=== PATIENT | female | born 1955 | race African-American/Black ===

== ENCOUNTER 2018-05-04 12:39 | Observation (INO) | payer SELFPAY ==
--- OUTSIDE RECORDS SUMMARY | 2018-05-04 12:42 | XMS REPORT | Summary of Care ---
:1955 Author Encounter CLARICE Khan(SHELLIE) [id number] Date(s): 04/01/14 - 04/01/[address] Discharge Diagnosis: Neck pain on left side Discharge Diagnosis: Tinea pedis Discharge Disposition: Home Physician Attending: Lon Peralta MD Reason for Visit RIGHT FOOT PAIN Vital Signs Most recent to oldest [Reference Range]: 1 2 Height 160.02 cm (04/01/14 12:53 PM) Temperature Oral [96.4-99.1 DegF] 98.3 DegF 98.7 DegF (04/01/14 3:04 PM) (04/01/14 12:53 PM) Systolic Blood Pressure [90-140 mmHg] 127 mmHg 126 mmHg (04/01/14 3:04 PM) (04/01/14 12:53 PM) Diastolic Blood Pressure [60-90 mmHg] 77 mmHg 69 mmHg (04/01/14 3:04 PM) (04/01/14 12:53 PM) Respiratory Rate [14-20 BRMIN] 18 BRMIN 16 BRMIN (04/01/14 3:04 PM) (04/01/14 12:53 PM) Peripheral Pulse Rate [60-100 bpm] 56 bpm 67 bpm *LOW* (04/01/14 12:53 PM) (04/01/14 3:04 PM) Weight 68.182 kg (04/01/14 12:53 PM) Body Mass Index 26.63 m2 (04/01/14 12:53 PM) Problem List Condition Effective Dates Status Health Status Informant Anxiety(Confirmed) Resolved Allergies, Adverse Reactions, Alerts Substance Reaction Severity Status NKDA Active Medications Flexeril 10 mg oral tablet 10 mg=1 tab, PO, TID, for spasm, # 20 tab, 0 Refill(s) Start Date: 04/01/14 Status: OrderedLotrimin AF Cream 1% topical 1 appl, TOP, BID, # 24 gm, 1 Refill(s) Start Date: 04/01/14 Stop Date: 05/27/14 Status: Orderednaproxen 500 mg oral tablet 500 mg=1 tab, PO, BID, Pain, with food, # 20 tab, 0 Refill(s) Special Instructions: with food Start Date: 04/01/14 Status: OrderedNorco 5/325 oral tablet 1 tab, Route: PO, Drug Form: TAB, Dosing Weight 68.182, kg, ONCE, STAT, Start date: 04/01/14 13:39:00, Stop date: 04/01/14 13:39:00 Notes: (Same as: [place] 325/5) Do not exceed 4gm/day of acetaminophen. Start Date: 04/01/14 Stop Date: 04/01/14 Status: Completed Medications Administered During Your Visit No data available for this section Immunizations No data available for this section
--- OUTSIDE RECORDS SUMMARY | 2018-05-04 12:42 | XMS REPORT | Continuity of Care Document ---
:1955 Author Organization Interface Problems Problem Status Onset Classification Date Comments Source Date Reported Discharge 06/06/2017 [facility] Diagnosis: 7 Medical Headache Center BRYAN/DIZZINESS Active [facility] 7 Medical Center Discharge 04/04/2014 [facility] Diagnosis: 4 Medical Neck pain on Center left side Discharge 04/04/2014 [facility] Diagnosis: 4 Medical Tinea pedis Center RIGHT FOOT Active [facility] PAIN 4 Medical Center Anxiety Resolved Problem 06/06/2017 [facility] Medications Medication Details Route Status Patient Ordering Order Source Instructions Provider Date Ketorolac 15 mg, 0.5 mL, Inactive [facility] Route: IVP, Drug 2016 Medical form: INJ, ONCE, Center Dosing Weight 82.727, kg, Priority: STAT, Start date: 06/03/17 1:00:00 PAY STATION DEPARTMENT MANAGER, Stop date: 06/03/17 1:00:00 CSTNotes: (Same as:Toradol) IV bolus must be given >15 seconds. Give IM administration slowly and deeply into the muscle. Not for use > 4 days MEDICATION WASTE Product Size: 30 mg Product Wasted: ___ mg Tylenol 1,000 mg, 2 tab, Inactive 06/[facility] Route: PO, Drug 2016 Medical form: TAB, ONCE, Center Dosing Weight 82.727, kg, Priority: STAT, Start date: 06/03/17 0:24:00 PAY STATION DEPARTMENT MANAGER, Stop date: 06/03/17 0:24:00 CSTNotes: Max acetaminophen 4000 mg/day (4 gm/day). (Same as: Tylenol Extra Strength) Benadryl 50 mg, 1 mL, Inactive [facility] Route: IVP, Drug 2016 Medical form: INJ, ONCE, Center Dosing Weight 82.727, kg, Priority: STAT, Start date: 06/03/17 0:24:00 PAY STATION DEPARTMENT MANAGER, Stop date: 06/03/17 0:24:00 CSTNotes: (Same as: Benadryl) NS (Bolus) IV 1,000 mL, 1,000 Inactive [facility] ml/hr, Infuse 2016 Medical Over: 1 hr, Center Route: IV, 1,000, Drug form: INJ, ONCE, Priority: STAT, Dosing Weight 82.727 kg, Start date: 06/03/17 0:24:00 PAY STATION DEPARTMENT MANAGER, Stop date: 06/03/17 0:24:00 PAY STATION DEPARTMENT MANAGER Reglan 10 mg, 2 mL, Inactive [facility] Route: IVP, Drug 2016 Medical form: INJ, ONCE, Center Dosing Weight 82.727, kg, Priority: STAT, Start date: 06/03/17 0:24:00 PAY STATION DEPARTMENT MANAGER, Stop date: 06/03/17 0:24:00 CSTNotes: (Same as: Reglan) Cyclobenzaprine 10 mg=1 tab, PO, Active [facility] hydrochloride 10 TID, for spasm, 2013 Medical MG Oral Tablet # 20 tab, 0 Center [Flexeril] Refill(s) naproxen 500 mg 500 mg=1 tab, Active [facility] oral tablet PO, BID, Pain, 2013 Medical with food, # 20 Center tab, 0 Refill(s)Special Instructions: with food Clotrimazole 10 1 appl, TOP, Active [facility] MG/ML Topical BID, # 24 gm, 1 2013 Medical Cream [Lotrimin] Refill(s) Center Acetaminophen 325 1 tab, Route: Inactive [facility] MG / Hydrocodone PO, Drug Form: 2013 Medical Bitartrate 5 MG TAB, Dosing Center Oral Tablet Weight 68.182, [[place] 5/325] kg, ONCE, STAT, Start date: 04/01/14 13:39:00, Stop date: 04/01/14 13:39:00Notes: (Same as: [place] 325/5) Do not exceed 4gm/day of acetaminophen. Allergies, Adverse Reactions, Alerts Substance Category Reaction Severity Reaction Status Date Comments Source type Reported Immunizations Immunization Date Given Site Status Last Updated Comments Source Results Order Name Results Value Reference Date Interpretation Comments Source Range ELECTROLYTES AGAP 9.2 10.0 - 06/03 [facility] meq/L 20.0 /2016 [facility] ELECTROLYTES Calcium Lvl 8.3 8.5 - 10.5 06/03 [place] mg/dL [facility] ELECTROLYTES eGFR 64 06/03 Result Comment: The eGFR is calculated using the CKD-EPI formula. In most young, healthy individuals the eGFR will be > 90 mL/min/1.73m2. The eGFR declines with age. An eGFR of 60-89 may be normal in [facility] mL/min/ /2016 some populations, particularly the elderly, for whom the CKD-EPI formula has not been extensively validated. Use of the eGFR is not recommended in the following populations: [facility] 1.73m2 Center Individuals with unstable creatinine concentrations, including patients and those with serious co-morbid conditions. Patients with extremes in muscle mass or diet. The data above are obtained from the National Kidney Disease Education Program (NKDEP) which additionally recommends that when the eGFR is used in patients with extremes of body mass index for purposes of drug dosing, the eGFR should be multiplied by the estimated BMI. ELECTROLYTES CO2 30 24 - 32 06/03 [facility] meq/L [facility] ELECTROLYTES Chloride Lvl 106 95 - 109 06/03 [facility] meq/L [facility] ELECTROLYTES Glucose Lvl 101 70 - 99 06/03 [facility] mg/dL [facility] ELECTROLYTES Potassium Lvl 4.2 3.5 - 5.1 06/03 [facility] meq/L [address] [place] [address] ELECTROLYTES Sodium Lvl 141 135 - 145 06/03 [facility] meq/L [address] [place] [address] ELECTROLYTES Creatinine 1.09 0.50 - 06/03 [place] Lvl mg/dL 1.40 [facility] ELECTROLYTES BUN 19 7 - 22 06/03 [facility] mg/dL [facility] HEMATOLOGY MCV 90.6 fL 80.0 - 06/03 [place] 98.0 [facility] HEMATOLOGY WBC 5.1 3.7 - 10.4 06/03 [facility] K/CMM [facility] HEMATOLOGY Hct 36.4 % 36.0 - 06/03 [place] 48.0 [facility] HEMATOLOGY Hgb 12.1 12.0 - 06/03 [place] g/dL 16.0 [facility] HEMATOLOGY RBC 4.02 4.20 - 06/03 [facility] M/CMM 5.40 /2016 [facility] HEMATOLOGY Platelet 234 133 - 450 06/03 [facility] K/CMM [facility] HEMATOLOGY RDW 14.1 % 11.5 - 06/03 [facility] 14.5 [facility] HEMATOLOGY MCHC 33.2 32.0 - 06/03 [facility] g/dL 36.0 [facility] HEMATOLOGY MCH 30.1 pg 27.0 - 06/03 [facility] 31.0 [facility] HEMATOLOGY MPV 8.0 fL 7.4 - 10.4 06/[address] HEMATOLOGY Lymphocytes # 2.2 1.0 - 5.5 06/03 [facility] HEMATOLOGY Monocytes # 0.5 0.0 - 0.8 06/03 [facility] HEMATOLOGY Eosinophils # 0.3 0.0 - 0.5 06/03 [facility] HEMATOLOGY Lymphocytes 43.1 % 20.0 - 06/03 [facility] 40.0 [facility] HEMATOLOGY Segs 42.5 % 45.0 - 06/03 [facility] 75.0 [facility] HEMATOLOGY Monocytes 8.8 % 2.0 - 12.0 06/03 [facility] HEMATOLOGY Basophils 0.6 % 0.0 - 1.0 06/03 [facility] HEMATOLOGY Eosinophils 5.0 % 0.0 - 4.0 06/[address] [place] [address] HEMATOLOGY Segs-Bands # 2.2 1.5 - 8.1 06/03 [facility] Vital Signs Vital Sign Value Date Comments Source Temperature Oral (F) 98.3 F 06/03/2017 [facility] Respitory Rate 18 06/03/2017 [facility] Heart Rate 72 06/03/2017 [facility] Systolic (mm Hg) 147 06/03/2017 [facility] Diastolic (mm Hg) 63 06/03/2017 [facility] Respitory Rate 18 06/03/2017 [facility] Heart Rate 70 06/03/2017 [facility] Systolic (mm Hg) 133 06/03/2017 [facility] Diastolic (mm Hg) 68 06/03/2017 [facility] Respitory Rate 18 06/03/2017 [facility] Heart Rate 71 06/03/2017 [facility] Systolic (mm Hg) 138 06/03/2017 [facility] Diastolic (mm Hg) 78 06/03/2017 [facility] Temperature Oral (F) 98.4 F 06/03/2017 [facility] Temperature Oral (F) 98.7 F 06/03/2017 [facility] BMI Calculated 33.36 06/02/2017 [facility] Weight 82.727 06/02/2017 [facility] Height 157.48 cm 06/02/2017 [facility] Systolic (mm Hg) 127 04/01/2014 [facility] Heart Rate 56 04/01/2014 [facility] Temperature Oral (F) 98.3 F 04/01/2014 [facility] Diastolic (mm Hg) 77 04/01/2014 [facility] Respitory Rate 18 04/01/2014 [facility] Temperature Oral (F) 98.7 F 04/01/2014 [facility] Systolic (mm Hg) 126 04/01/2014 [facility] Diastolic (mm Hg) 69 04/01/2014 [facility] Respitory Rate 16 04/01/2014 [facility] Heart Rate 67 04/01/2014 [facility] BMI Calculated 26.63 04/01/2014 [facility] Weight 68.182 04/01/2014 [facility] Height 160.02 cm 04/01/2014 [facility] Encounters Location Location Encounter Encounter Reason Attending ADM DC Status Source Details Type Number For Provider Date Date Visit [facility] [place] [id number] Lon 04/01 04/01 [facility] Emergency Kathryn /2013 [facility] Emergency [id number] Garett Costa 06/02 06/03 [facility] /2016 [facility] Procedures Procedure Code Date Perfomer Comments Source
--- OUTSIDE RECORDS SUMMARY | 2018-05-04 12:42 | XMS REPORT | Summary of Care ---
:1955 Author Organization [facility] Address [address] [place], [place] [address]- Encounter HQ Bill(SHELLIE) [id number] Date(s): 06/02/17 - 06/03/[address] Professional Services provided by [facility] [address]- Discharge Diagnosis: Headache Discharge Disposition: Home or Self Care Attending Physician: Garett Costa MD Vital Signs Most recent to oldest 1 2 3 [Reference Range]: Height 157.48 cm (06/02/17 4:12 PM) Temperature Oral 98.3 DegF 98.4 DegF 98.7 DegF [96.4-99.1 DegF] (06/03/17 2:00 AM) (06/02/17 11:44 PM) (06/02/17 6:56 PM) Blood Pressure 147/63 mmHg 133/68 mmHg 138/78 mmHg [90-140/60-90 mmHg] *HI* (06/03/17 1:00 AM) (06/03/17 12:00 AM) (06/03/17 2:00 AM) Respiratory Rate [14-20 18 BRMIN 18 BRMIN 18 BRMIN BRMIN] (06/03/17 2:00 AM) (06/03/17 1:00 AM) (06/03/17 12:00 AM) Peripheral Pulse Rate 72 bpm 70 bpm 71 bpm [60-100 bpm] (06/03/17 2:00 AM) (06/03/17 1:00 AM) (06/03/17 12:00 AM) Weight 82.727 kg (06/02/17 4:12 PM) Body Mass Index 33.36 m2 (06/02/17 4:12 PM) Problem List Condition Effective Dates Status Health Status Informant Anxiety(Confirmed) Resolved Allergies, Adverse Reactions, Alerts Substance Reaction Severity Status NKDA Active Medications Benadryl 50 mg, 1 mL, Route: IVP, Drug form: INJ, ONCE, Dosing Weight 82.727, kg, Priority: STAT, Start date:06/03/17 0:24:00 CONDENSER TUBE TENDER, Stop date: 06/03/17 0:24:00 CONDENSER TUBE TENDER Notes: (Same as: Benadryl) Start Date: 06/03/17 Stop Date: 06/03/17 Status: CompletedketOROLAC 15 mg, 0.5 mL, Route: IVP, Drug form: INJ, ONCE, Dosing Weight 82.727, kg, Priority: STAT, Start date: 06/03/17 1:00:00 CONDENSER TUBE TENDER, Stop date: 06/03/17 1:00:00 CONDENSER TUBE TENDER Notes: (Same as:Toradol) IV bolus must be given >15 seconds. Give IM administration slowly and deeply into the muscle.Not for use > 4 days MEDICATION WASTE Product Size: 30 mgProduct Wasted: ___ mg Start Date: 06/03/17 Stop Date: 06/03/17 Status: CompletedNS (Bolus) IV 1,000 mL, 1,000 ml/hr, Infuse Over: 1 hr, Route: IV, 1,000, Drug form: INJ, ONCE , Priority: STAT, Dosing Weight 82.727 kg, Start date: 06/03/17 0:24:00 CONDENSER TUBE TENDER, Stop date: 06/03/17 0:24:00 CONDENSER TUBE TENDER Start Date: 06/03/17 Stop Date: 06/03/17 Status: CompletedReglan 10 mg, 2 mL, Route: IVP, Drug form: INJ, ONCE, Dosing Weight 82.727, kg, Priority: STAT, Start date:06/03/17 0:24:00 CONDENSER TUBE TENDER, Stop date: 06/03/17 0:24:00 CONDENSER TUBE TENDER Notes: (Same as: Reglan) Start Date: 06/03/17 Stop Date: 06/03/17 Status: CompletedTylenol 1,000 mg, 2 tab, Route: PO, Drug form: TAB, ONCE, Dosing Weight 82.727, kg, Priority: STAT, Start date: 06/03/17 0:24:00 CONDENSER TUBE TENDER, Stop date: 06/03/17 0:24:00 CONDENSER TUBE TENDER Notes: Max acetaminophen 4000 mg/day (4 gm/day). (Same as: Tylenol Extra Strength) Start Date: 06/03/17 Stop Date: 06/03/17 Status: Completed Results ELECTROLYTES Most recent to oldest [Reference Range]: 1 Sodium Lvl [135-145 mEq/L] 141 mEq/L (06/03/17 12:42 AM) Potassium Lvl [3.5-5.1 mEq/L] 4.2 mEq/L (06/03/17 12:42 AM) Chloride Lvl [95-109 mEq/L] 106 mEq/L (06/03/17 12:42 AM) CO2 [24-32 mEq/L] 30 mEq/L (06/03/17 12:42 AM) AGAP [10.0-20.0 mEq/L] 9.2 mEq/L *LOW* (06/03/17 12:42 AM) CHEM PANEL Most recent to oldest [Reference Range]: 1 Creatinine Lvl [0.50-1.40 mg/dL] 1.09 mg/dL (06/03/17 12:42 AM) eGFR 64 mL/min/1.73m2 1 *NA* (06/03/17 12:42 AM) BUN [7-22 mg/dL] 19 mg/dL (06/03/17 12:42 AM) Glucose Lvl [70-99 mg/dL] 101 mg/dL *HI* (06/03/17 12:42 AM) Calcium Lvl [8.5-10.5 mg/dL] 8.3 mg/dL *LOW* (06/03/17 12:42 AM) 1Result Comment: The eGFR is calculated using the CKD-EPI formula. In most young , healthy individualsthe eGFR will be >90 mL/min/1.73m2. The eGFR declines with age. An eGFR of 60-89 may be normal insome populations, particularly the elderly, for whom the CKD-EPI formula has not been extensively validated. Use of the eGFR is not recommended in the following populations: Individuals with unstable creatinine concentrations, including patients and those with serious co-morbid conditions. Patients with extremes in muscle mass or diet. The data above are obtained from the National Kidney Disease Education Program ( NKDEP) which additionally recommends that when the eGFR is used in patients with extremes of body mass index for purposesof drug dosing, the eGFR should be multiplied by the estimated BMI.HEMATOLOGY Most recent to oldest [Reference Range]: 1 WBC [3.7-10.4 K/CMM] 5.1 K/CMM (06/03/17 12:42 AM) RBC [4.20-5.40 M/CMM] 4.02 M/CMM *LOW* (06/03/17 12:42 AM) Hgb [12.0-16.0 g/dL] 12.1 g/dL (06/03/17 12:42 AM) Hct [36.0-48.0 %] 36.4 % (06/03/17 12:42 AM) MCV [80.0-98.0 fL] 90.6 fL (06/03/17 12:42 AM) MCH [27.0-31.0 pg] 30.1 pg (06/03/17 12:42 AM) MCHC [32.0-36.0 g/dL] 33.2 g/dL (06/03/17 12:42 AM) RDW [11.5-14.5 %] 14.1 % (06/03/17 12:42 AM) Platelet [133-450 K/CMM] 234 K/CMM (06/03/17 12:42 AM) MPV [7.4-10.4 fL] 8.0 fL (06/03/17 12:42 AM) Segs [45.0-75.0 %] 42.5 % *LOW* (06/03/17 12:42 AM) Lymphocytes [20.0-40.0 %] 43.1 % *HI* (06/03/17 12:42 AM) Monocytes [2.0-12.0 %] 8.8 % (06/03/17 12:42 AM) Eosinophils [0.0-4.0 %] 5.0 % *HI* (06/03/17 12:42 AM) Basophils [0.0-1.0 %] 0.6 % (06/03/17 12:42 AM) Segs-Bands # [1.5-8.1 K/CMM] 2.2 K/CMM (06/03/17 12:42 AM) Lymphocytes # [1.0-5.5 K/CMM] 2.2 K/CMM (06/03/17 12:42 AM) Monocytes # [0.0-0.8 K/CMM] 0.5 K/CMM (06/03/17 12:42 AM) Eosinophils # [0.0-0.5 K/CMM] 0.3 K/CMM (06/03/17 12:42 AM) Immunizations No data available for this section Procedures No data available for this section Social History Social History Type Response Smoking Status Former smoker; Type: Cigarettes; Exposure to Tobacco Smoke None ; Cigarette Smoking Last 365 Days No; Reg Smoking Cessation Counseling No Assessment and Plan No data available for this section
[2018-05-04] MEDS ORDERED: NA CHLORIDE 0.9% 1,000 ML ONE ×2 (14:50→15:03)
[2018-05-04] MEDS ORDERED: ASPIRIN 81 MG CHEWABLE TABLET ONE ×2 (14:50→15:03)
[2018-05-04 15:05] LABS: Absolute Lymphocytes (CBC) 2.2 K/uL (0.7-4.9); Absolute Monocytes 0.5 K/uL (0.1-1.3); Absolute Neutrophil 2.8 K/uL (1.8-8.0); Basophils % 0.6 % (0-1.3); Lymphocytes % 37.6 % (15.3-44.8); MPV 8.6 fL (7.6-11.3); Monocytes % 8.1 % (3.3-12.3)
--- NOTE | 2018-05-04 15:05 | RAD REPORT ---
EXAM DESCRIPTION: CT - Head Brain Wo Cont - 05/04/2018 2:54 pm CLINICAL HISTORY: Headache COMPARISON: None. TECHNIQUE: Axial 5 mm thick images of the head were obtained without IV contrast. All CT scans are performed using dose optimization technique as appropriate and may include automated exposure control or mA/KV adjustment according to patient size. FINDINGS: No intracranial hemorrhage, mass, edema or shift of mid-line structures. No acute infarcti on changes seen. No abnormal extra-axial fluid collections. Ventricles are normal. Mastoid air cells and visualized portions of the paranasal sinuses are clear. No acute bony findings. IMPRESSION: Negative non-contrast CT head examination.
[2018-05-04 15:07] LABS: Protime INR 0.99
[2018-05-04 15:26] LABS: ALT/SGPT 28 U/L (12-78); AST/SGOT 28 U/L (15-37); Albumin 3.4 g/dL (3.4-5.0); Alkaline Phosphatase 76 U/L (45-117); BUN Blood Urea Nitrogen 15 mg/dL (7-18); Bicarbonate 29 mmol/L (21-32); Bilirubin Direct < 0.1 mg/dL (0-0.2); Bilirubin Total 0.4 mg/dL (0.2-1.0); Glucose Level 88 mg/dL (74-106); Lipase 112 U/L (73-393); Magnesium 2.3 mg/dL (1.8-2.4); NT PRO-BNP 126 pg/mL (<125); Potassium 4.6 mmol/L (3.5-5.1); Protein, Total 7.2 g/dL (6.4-8.2); Sodium Level 141 mmol/L (136-145); Troponin (Emerg Dept Use Only) < 0.02 ng/mL (0.0-0.045)
--- NOTE | 2018-05-04 15:27 | RAD REPORT ---
EXAM DESCRIPTION: RAD - Chest Single View - 05/04/2018 2:57 pm CLINICAL HISTORY: Chest pain COMPARISON: June 2008 TECHNIQUE: AP portable chest image was obtained 1448 hours . FINDINGS: No focal lung parenchymal process. Lung markings are similar to comparison. Heart and vasc ulature are normal. No measurable pleural effusion and no pneumothorax. No acute bony abnormality see n. No acute aortic findings suspected. IMPRESSION: No acute cardiopulmonary process. No significant interval change.
--- NOTE | 2018-05-04 15:44 | EKG ---
Test Date: 2018-05-04 Test Time: 12:46:04 Machine Shop Repair Technician: NORI MEASUREMENT RESULTS: Intervals: Rate: 57 PA: 168 QRSD: 80 QT: 398 QTc: 387 [place]: P: 73 PA: 168 QRS: -2 T: 29 INTERPRETIVE STATEMENTS: Sinus bradycardia with sinus arrhythmia Otherwise normal ECG Compared to ECG 09/28/2003 05:09:00 No significant changes Electronically Signed On 05-04-18 15:44:17 CDT by Live Valdez
--- NOTE | 2018-05-04 15:49 | ER ---
Nurse's Notes [facility] Name: Quynh Prasad Age: 62 yrs Sex: Female : 1955 Arrival Date: 05/04/2018 Time: 12:41 Bed 14 Private MD: Diagnosis: Chest pain, unspecified;Essential (primary) hypertension Presentation: 05/04 12:43 Presenting complaint: Patient states: " I was working yesterday and I got really bad ph chest pain that moved through to my back." Pt also reports SOB and headache, denies N/V. Transition of care: patient was not received from another setting of care. Onset of symptoms was May 04, 2018. Risk Assessment: Do you want to hurt yourself or someone else? Patient reports no desire to harm self or others. Care prior to arrival: None. 12:43 Method Of Arrival: Ambulatory ph 12:43 Acuity: PERLA 3 ph 15:00 Initial Sepsis Screen: Does the patient meet any 2 criteria? No. Patient's initial hb sepsis screen is negative. Does the patient have a suspected source of infection? No. Patient's initial sepsis screen is negative. Triage Assessment: 14:35 General: Appears in no apparent distress. comfortable, Behavior is calm, cooperative. ls4 14:35 Pain:. ls4 Historical: - Allergies: 12:45 No Known Allergies; ph - PMHx: 12:45 Bladder Spasms; ph - PSHx: 12:45 Tonsillectomy; ph - Immunization history:: Adult Immunizations unknown. - Social history:: Smoking status: Patient uses tobacco products, smokes one pack cigarettes per day. - Family history:: not pertinent. - Ebola Screening: : No symptoms or risks identified at this time. Screenin:20 Abuse screen: Denies threats or abuse. Denies injuries from another. Nutritional ls4 screening: No deficits noted. Tuberculosis screening: No symptoms or risk factors identified. Fall Risk None identified. Assessment: 14:35 General: Appears in no apparent distress. comfortable, well developed, well nourished, ls4 Behavior is calm, cooperative, appropriate for age. Pain: Complains of pain in forehead Pain does not radiate. Pain began 3 hours ago. Neuro: No deficits noted. Cardiovascular: No deficits noted. Respiratory: No deficits noted. 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 Pt states pain gets worse when she moves her right arm. . 15:30 Reassessment: Patient appears in no apparent distress at this time. Patient and/or hb family updated on plan of care and expected duration. Pain level reassessed. Patient is alert, oriented x 3, equal unlabored respirations, skin warm/dry/pink. 16:26 Reassessment: Patient appears in no apparent distress at this time. Patient and/or hb family updated on plan of care and expected duration. Pain level reassessed. Patient is alert, oriented x 3, equal unlabored respirations, skin warm/dry/pink. Admission ordered, awaiting room assignment at this time. Family at bedside. 17:15 Reassessment: Patient appears in no apparent distress at this time. Patient and/or hb family updated on plan of care and expected duration. Pain level reassessed. Patient is alert, oriented x 3, equal unlabored respirations, skin warm/dry/pink. 17:35 Reassessment: Attempted to call report to floor, receiving nurse unavailable at this time. 18:36 Reassessment: Patient appears in no apparent distress at this time. No changes from previously documented assessment. Patient and/or family updated on plan of care and expected duration. Pain level reassessed. Patient is alert, oriented x 3, equal unlabored respirations, skin warm/dry/pink. 19:15 Reassessment: Patient appears in no apparent distress at this time. Patient and/or cc3 family updated on plan of care and expected duration. Pain level reassessed. Patient is alert, oriented x 3, equal unlabored respirations, skin warm/dry/pink. Received this female patient from morning shift MANDI Rodriguez as a case of chest pain for admission to room 417 after shift change. With IV cannula gauge 20 at the right ACV with ongoing IV fluid of Normal Saline at 125 mL/hr infusing well. 19:35 Reassessment: Called extension [phone] for report but was told that the nurse who will cc3 receive will just call me back. 20:00 Reassessment: Patient appears in no apparent distress at this time. Patient and/or cc3 family updated on plan of care and expected duration. Pain level reassessed. Patient is alert, oriented x 3, equal unlabored respirations, skin warm/dry/pink. Report handed over to MANDI Pradhan for continuity of care. 20:20 Reassessment: Patient appears in no apparent distress at this time. Patient and/or cc3 family updated on plan of care and expected duration. Pain level reassessed. Patient is alert, oriented x 3, equal unlabored respirations, skin warm/dry/pink. Patient left ER for admission vitally stable by stretcher with family escorted by camera technician Delfin. Vital Signs: 12:46 BP 150 / 87; Pulse 61; Resp 18; Temp 97.3; Pulse Ox 98% on R/A; Weight 89.81 kg; Height ph 5 ft. 3 in. (160.02 cm); 15:15 BP 148 / 88; Pulse 66; Resp 16; Pulse Ox 100% on R/A; hb 16:27 BP 147 / 82; Pulse 60; Resp 15; Pulse Ox 100% on R/A; Pain 3/10; hb 18:03 BP 130 / 66; Pulse 65; Resp 15; Pulse Ox 100% on R/A; Pain 2/10; hb 19:15 BP 124 / 73; Pulse 56; Resp 17 S; Temp 98.3(O); Pulse Ox 100% on R/A; cc3 20:15 BP 132 / 77; Pulse 59; Resp 16 S; Pulse Ox 100% on R/A; cc3 12:46 Body Mass Index 35.07 (89.81 kg, 160.02 cm) ph ED Course: 12:41 Patient arrived in ED. as 12:45 Triage completed. ph 12:46 EKG done, by multi care technician. reviewed by Pawel Killian MD. at1 12:47 Arm band placed on. ph 12:48 EKG completed in triage. Results shown to MD. ph 14:34 Pawel Killian MD is Attending Physician. demetra 14:52 Jennifer Rubio, RN is Primary Nurse. hb 14:54 CT Head Brain wo Cont In Process Unspecified. EDMS 14:56 X-ray completed. Portable x-ray completed in exam room. Patient tolerated procedure ls3 well. 14:58 XRAY Chest (1 view) In Process Unspecified. EDMS 15:00 Patient has correct armband on for positive identification. Fall risk band placed. hb Placed in gown. Bed in low position. Call light in reach. Side rails up X 1. desk monitor on. Pulse ox on. NIBP on. 15:00 Patient maintains SpO2 saturation greater than 95% on room air. hb 15:05 Inserted saline lock: 20 gauge in right antecubital area, using aseptic technique. ls4 Blood collected. 15:05 No provider procedures requiring assistance completed. Initial lab(s) drawn, by wy, ls4 sent to lab. 15:48 Rachel Dela Cruz MD is Hospitalizing Provider. demetra 16:26 Ultrasound completed. Patient tolerated well. Note: us done bedside in er. lc3 20:20 Patient admitted, IV remains in place. cc3 Administered Medications: 14:40 CANCELLED (Duplicate Order): NS 0.9% 1000 ml IV at 75 ml/hr continuous ss 15:00 Drug: NS 0.9% 1000 ml Route: IV; Rate: 125 ml/hr; Site: right antecubital; ls4 18:34 Follow up: Response: No adverse reaction; IV Status: Infusion continued upon admission hb 15:00 Drug: Aspirin 81 mg Route: PO; ls4 16:00 Follow up: Response: No adverse reaction hb 16:25 Drug: Zofran 4 mg Route: IVP; Site: right antecubital; hb 17:10 Follow up: Response: No adverse reaction hb 16:25 Drug: Pepcid 20 mg Route: IVP; Site: right antecubital; hb 17:11 Follow up: Response: No adverse reaction hb 16:26 Drug: Lovenox 1 mg/kg Route: Sub-Q; Site: abdomen; hb 17:20 Follow up: Response: No adverse reaction hb 16:26 Drug: morphine 2 mg Route: IVP; Site: right antecubital; hb 17:00 Follow up: Response: No adverse reaction hb 16:55 Drug: morphine 2 mg Route: IVP; Site: right antecubital; hb 17:33 Follow up: Response: Adverse reaction, Physician notified; Pain is decreased hb 18:49 Drug: morphine 2 mg Route: IVP; Site: right antecubital; hb 19:15 Follow up: Response: No adverse reaction; Pain is decreased cc3 Outcome: 15:49 Decision to Hospitalize by Provider. demetra 20:20 Admitted to Tele accompanied by tech, family with patient, via stretcher, room 417, cc3 with chart, Report called to MANDI Pradhan 20:20 Condition: stable 20:20 Instructed on the need for admit, Demonstrated understanding of instructions. 20:26 Patient left the ED. cc3 Signatures: Dispatcher [employer] EDPawel Diaz MD MD cha Martinez, Amelia as Fuad, Emily, all terrain vehicle racer EKG Tat1 Wilda Roldan RN RN Kathya Pulliam Heather RN RN Leonarda Rivera cc3 Momo Mead ls3 Vaishali Castillo RN RN ls4 She Kapoor RN ss
--- NOTE | 2018-05-04 15:49 | EDPHYS ---
Physician Documentation [facility] Name: Quynh Prasad Age: 62 yrs Sex: Female : 1955 Arrival Date: 05/04/2018 Time: 12:41 Bed 14 Private MD: ED Physician Pawel Killian HPI: 05/04 15:42 This 62 yrs old Black Female presents to ER via Ambulatory with complaints of Chest demetra Pain, Headache. 15:42 The patient or guardian reports chest pain that is located primarily in the substernal demetra area, epigastric area. Onset: 2 day(s) ago. The pain radiates to chest. Associated signs and symptoms: The patient has no apparent associated signs or symptoms. The chest pain is described as causing indigestion, a pressure. Modifying factors: The symptoms are alleviated by nothing. the symptoms are aggravated by nothing. Severity of pain: At its worst the pain was mild moderate in the emergency department the pain is unchanged. The patient has not experienced similar symptoms in the past. Historical: - Allergies: 12:45 No Known Allergies; ph - PMHx: 12:45 Bladder Spasms; ph - PSHx: 12:45 Tonsillectomy; ph - Immunization history:: Adult Immunizations unknown. - Social history:: Smoking status: Patient uses tobacco products, smokes one pack cigarettes per day. - Family history:: not pertinent. - Ebola Screening: : No symptoms or risks identified at this time. ROS: 15:44 Constitutional: Negative for fever, chills, and weight loss, Eyes: Negative for injury, demetra pain, redness, and discharge, ENT: Negative for injury, pain, and discharge, Neck: Negative for injury, pain, and swelling, Respiratory: Negative for shortness of breath, cough, wheezing, and pleuritic chest pain, Back: Negative for injury and pain, : Negative for injury, bleeding, discharge, and swelling, MS/Extremity: Negative for injury and deformity, Skin: Negative for injury, rash, and discoloration, Neuro: Negative for headache, weakness, numbness, tingling, and seizure, Psych: Negative for depression, anxiety, suicide ideation, homicidal ideation, and hallucinations, Allergy/Immunology: Negative for hives, rash, and allergies, Endocrine: Negative for neck swelling, polydipsia, polyuria, polyphagia, and marked weight changes, Hematologic/Lymphatic: Negative for swollen nodes, abnormal bleeding, and unusual bruising. 15:44 Cardiovascular: Positive for chest pain. 15:44 Abdomen/GI: Positive for abdominal pain, of the epigastric area. Exam: 15:44 Constitutional: This is a well developed, well nourished patient who is awake, alert, demetra and in no acute distress. Head/Face: Normocephalic, atraumatic. Eyes: Pupils equal round and reactive to light, extra-ocular motions intact. Lids and lashes normal. Conjunctiva and sclera are non-icteric and not injected. Cornea within normal limits. Periorbital areas with no swelling, redness, or edema. ENT: Nares patent. No nasal discharge, no septal abnormalities noted. Tympanic membranes are normal and external auditory canals are clear. Oropharynx with no redness, swelling, or masses, exudates, or evidence of obstruction, uvula midline. Mucous membranes moist. Neck: Trachea midline, no thyromegaly or masses palpated, and no cervical lymphadenopathy. Supple, full range of motion without nuchal rigidity, or vertebral point tenderness. No Meningismus. Chest/axilla: Normal chest wall appearance and motion. Nontender with no deformity. No lesions are appreciated. Cardiovascular: Regular rate and rhythm with a normal S1 and S2. No gallops, murmurs, or rubs. Normal PMI, no JVD. No pulse deficits. Respiratory: Lungs have equal breath sounds bilaterally, clear to auscultation and percussion. No rales, rhonchi or wheezes noted. No increased work of breathing, no retractions or nasal flaring. Back: No spinal tenderness. No costovertebral tenderness. Full range of motion. Female : Normal external genitalia. Skin: Warm, dry with normal turgor. Normal color with no rashes, no lesions, and no evidence of cellulitis. MS/ Extremity: Pulses equal, no cyanosis. Neurovascular intact. Full, normal range of motion. Neuro: Awake and alert, GCS 15, oriented to person, place, time, and situation. Cranial nerves II-XII grossly intact. Motor strength 5/5 in all extremities. Sensory grossly intact. Cerebellar exam normal. Normal gait. Psych: Awake, alert, with orientation to person, place and time. Behavior, mood, and affect are within normal limits. 15:44 Abdomen/GI: Inspection: abdomen appears normal, Bowel sounds: normal, Palpation: mild abdominal tenderness, in the epigastric area, right upper quadrant and left upper quadrant, Liver: no appreciated palpable abnormalities, Hernia: not appreciated. 15:46 Musculoskeletal/extremity: DVT Exam: No signs of deep vein thrombosis. no pain, no demetra swelling, no tenderness, negative Homans' sign noted on exam, no appreciated bluish discoloration, no erythema, no increased warmth. Vital Signs: 12:46 BP 150 / 87; Pulse 61; Resp 18; Temp 97.3; Pulse Ox 98% on R/A; Weight 89.81 kg; Height ph 5 ft. 3 in. (160.02 cm); 15:15 BP 148 / 88; Pulse 66; Resp 16; Pulse Ox 100% on R/A; hb 16:27 BP 147 / 82; Pulse 60; Resp 15; Pulse Ox 100% on R/A; Pain 3/10; hb 18:03 BP 130 / 66; Pulse 65; Resp 15; Pulse Ox 100% on R/A; Pain 2/10; hb 19:15 BP 124 / 73; Pulse 56; Resp 17 S; Temp 98.3(O); Pulse Ox 100% on R/A; cc3 20:15 BP 132 / 77; Pulse 59; Resp 16 S; Pulse Ox 100% on R/A; cc3 12:46 Body Mass Index 35.07 (89.81 kg, 160.02 cm) ph MDM: 14:34 Patient medically screened. [facility] 15:46 Data reviewed: vital signs, nurses notes, lab test result(s), EKG, radiologic studies, [facility] plain films, ultrasound. 05/04 14:35 Order name: Basic Metabolic Panel; Complete Time: 15:43 [facility] 05/04 14:35 Order name: CBC with Diff; Complete Time: 15:43 [facility] 05/04 14:35 Order name: LFT's; Complete Time: 15:43 [facility] 05/04 14:35 Order name: Magnesium; Complete Time: 15:43 [facility] 05/04 14:35 Order name: NT PRO-BNP; Complete Time: 15:43 [facility] 05/04 14:35 Order name: PT-INR; Complete Time: 15:43 [facility] 05/04 14:35 Order name: Troponin (emerg Dept Use Only); Complete Time: 15:43 [facility] 05/04 14:35 Order name: XRAY Chest (1 view); Complete Time: 15:43 [facility] 05/04 14:35 Order name: Lipase; Complete Time: 15:43 [facility] 05/04 14:35 Order name: CT Head Brain wo Cont; Complete Time: 15:43 [facility] 05/04 14:58 Order name: Urine Dipstick--Ancillary (enter results); Complete Time: 17:27 05/04 15:43 Order name: US Abdomen Limited [facility] 05/04 16:53 Order name: US; Complete Time: 17:27 [facility] 05/04 14:35 Order name: EKG; Complete Time: 14:36 [facility] 05/04 14:35 Order name: Cardiac monitoring; Complete Time: 14:53 [facility] 05/04 14:35 Order name: EKG - Nurse/Tech; Complete Time: 14:54 [facility] 05/04 14:35 Order name: IV Saline Lock; Complete Time: 14:53 [facility] 05/04 14:35 Order name: Labs collected and sent; Complete Time: 14:53 [facility] 05/04 14:35 Order name: O2 Per Protocol; Complete Time: 16:26 [facility] 05/04 15:55 Order name: CONS Physician Consult [facility] 05/04 17:21 Order name: Diet Regular; Complete Time: 17:[address] [facility] 05/04 14:35 Order name: O2 Sat Monitoring; Complete Time: 14:53 [facility] Administered Medications: 14:40 CANCELLED (Duplicate Order): NS 0.9% 1000 ml IV at 75 ml/hr continuous ss 15:00 Drug: NS 0.9% 1000 ml Route: IV; Rate: 125 ml/hr; Site: right antecubital; ls4 18:34 Follow up: Response: No adverse reaction; IV Status: Infusion continued upon admission hb 15:00 Drug: Aspirin 81 mg Route: PO; ls4 16:00 Follow up: Response: No adverse reaction hb 16:25 Drug: Zofran 4 mg Route: IVP; Site: right antecubital; hb 17:10 Follow up: Response: No adverse reaction hb 16:25 Drug: Pepcid 20 mg Route: IVP; Site: right antecubital; hb 17:11 Follow up: Response: No adverse reaction hb 16:26 Drug: Lovenox 1 mg/kg Route: Sub-Q; Site: abdomen; hb 17:20 Follow up: Response: No adverse reaction hb 16:26 Drug: morphine 2 mg Route: IVP; Site: right antecubital; hb 17:00 Follow up: Response: No adverse reaction hb 16:55 Drug: morphine 2 mg Route: IVP; Site: right antecubital; hb 17:33 Follow up: Response: Adverse reaction, Physician notified; Pain is decreased hb 18:49 Drug: morphine 2 mg Route: IVP; Site: right antecubital; hb 19:15 Follow up: Response: No adverse reaction; Pain is decreased cc3 Disposition: 05/04/18 15:49 Hospitalization ordered by Rachel Dela Cruz for Observation. Preliminary diagnosis are Chest pain, unspecified, Essential (primary) hypertension. - Bed requested for Telemetry/MedSurg (observation). - Status is Observation. cc3 - Condition is Stable. - Problem is new. - Symptoms have improved. UTI on Admission? No Signatures: Dispatcher [employer] EDMS Karyn Puentes Corey, MD MD cha Hall, Patricia RN RN Jennifer Rubio RN RN Leonarda Rivera cc3 Vaishali Castillo RN RN ls4 She Kapoor RN ss Corrections: (The following items were deleted from the chart) 14:40 14:35 NS 0.9% 1000 ml IV at 75 ml/hr continuous ordered. [facility] 17:23 15:49 Hospitalization Ordered by Rachel Dela Cruz MD for Observation. Preliminary bd diagnosis is Chest pain, unspecified; Essential (primary) hypertension. Bed requested for Telemetry/MedSurg (observation). Status is Observation. Condition is Stable. Problem is new. Symptoms have improved. UTI on Admission? No. demetra 20:26 17:23 05/04/2018 15:49 Hospitalization Ordered by Rachel Dela Cruz MD for Observation. cc3 Preliminary diagnosis is Chest pain, unspecified; Essential (primary) hypertension. Bed requested for Telemetry/MedSurg (observation). Status is Observation. Condition is Stable. Problem is new. Symptoms have improved. UTI on Admission? No. bd
[2018-05-04 16:04] LABS: Urine Blood TRACE (NEG); Urine Glucose NEGATIVE (NEG); Urine Protein NEGATIVE (NEG); Urine Specific Gravity 1.025 (1.005-1.030); Urine pH 6.5 (5.0-7.0)
[2018-05-04] MEDS ORDERED: ONDANSETRON 4 MG/2 ML VIAL ONE (16:21)
[2018-05-04] MEDS ORDERED: ENOXAPARIN 100 MG/ML SYR SQ ONE (16:21)
[2018-05-04] MEDS ORDERED: FAMOTIDINE 20 MG/2 ML VIAL IV ONE (16:21)
[2018-05-04] MEDS ORDERED: MORPHINE 4 MG/ML SYR ONE ×2 (16:21→18:51)
--- NOTE | 2018-05-04 16:52 | RAD REPORT ---
EXAM DESCRIPTION: US - Abdomen Exam Limited - 05/04/2018 4:46 pm CLINICAL HISTORY: ABD PAIN COMPARISON: No comparisons FINDINGS: The gallbladder demonstrates no gallstones. No pericholecystic fluid or gallbladder wall t hickening. The common bile duct is normal measuring 3 mm. The liver demonstrates no findings of intrahepatic biliary dilatation. IMPRESSION: Unremarkable examination.
[2018-05-04] MEDS ORDERED: ACETAMINOPHEN 500 MG TAB ONE (18:52)
[2018-05-04] MEDS ORDERED: ACETAMINOPHEN 500 MG TAB PO PRN (20:42)
[2018-05-04] MEDS ORDERED: ONDANSETRON 4 MG/2 ML VIAL IV PRN (20:42)
[2018-05-04] MEDS ORDERED: ATORVASTATIN 20 MG TAB PO SCH (21:00)
[2018-05-04 21:50] VITALS: BMI 35.4
[2018-05-05] MEDS ORDERED: ALPRAZOLAM 0.5 MG TABLET PO ONE (03:20)
[2018-05-05] MEDS ORDERED: ALPRAZOLAM 0.5 MG TABLET PO PRN (04:16)
[2018-05-05 06:00] LABS: Absolute Lymphocytes (CBC) 2.5 K/uL (0.7-4.9); Absolute Monocytes 0.4 K/uL (0.1-1.3); Absolute Neutrophil 2.2 K/uL (1.8-8.0); Basophils % 0.7 % (0-1.3); Hematocrit 34.8 % (36.0-45.0); Lymphocytes % 46.1 % (15.3-44.8); MCH 31.1 pg (27.0-35.0); MCV 93.7 fL (80-100); MPV 9.2 fL (7.6-11.3); Monocytes % 6.8 % (3.3-12.3); RBC Red Blood Cell Count 3.72 M/uL (3.86-4.86)
[2018-05-05] MEDS ORDERED: METOPROLOL XL 25 MG TAB PO SCH (06:00)
[2018-05-05 06:28] LABS: ALT/SGPT 48 U/L (12-78); AST/SGOT 48 U/L (15-37); Albumin 2.9 g/dL (3.4-5.0); Alkaline Phosphatase 62 U/L (45-117); BUN Blood Urea Nitrogen 22 mg/dL (7-18); Bicarbonate 27 mmol/L (21-32); Bilirubin Total 0.3 mg/dL (0.2-1.0); Glucose Level 96 mg/dL (74-106); Protein, Total 5.9 g/dL (6.4-8.2); Sodium Level 141 mmol/L (136-145); Troponin I < 0.02 ng/mL (0.0-0.045)
[2018-05-05] MEDS ORDERED: REGADENOSON 0.4 MG/5 ML SYR IV ONE (07:46)
[2018-05-05] MEDS ORDERED: ASPIRIN 81 MG CHEWABLE TABLET PO SCH (09:00)
[2018-05-05 09:59] LABS: Blood Morphology Comment NOT SEEN (NOT SEEN); Platelet Estimate ADEQ; Urine White Blood Cell Casts DIFF
--- NOTE | 2018-05-05 10:08 | P.HP ---
Certification for Inpatient Patient admitted to: Observation With expected LOS: <2 Midnights Patient will require the following post-hospital care: None Practitioner: I am a practitioner with admitting privileges, knowledge of patient current condition, hospital course, and medical plan of care. Services: Services provided to patient in accordance with Admission requirements found in Title 42 Section 412.3 of the Code of Federal Regulations Patient History Date of Service: 05/04/18 Reason for admission: Chest pain rule out History of Present Illness: Patient is a 62-year-old female with chest discomfort. Pain is mainly in the sternal region. Patient felt a pressure sensation. Patient came into the hospital for further evaluation. She states it was associated with her diet. However she does have multiple risk factors. She will need serial troponins and EKG. Plan to do stress testing in the morning. Allergies No Known Allergies Allergy (Unverified 12/19/15 17:58) Home Medications: Ascorbic Acid [Vitamin C] 500 mg PO DAILY 05/04/18 - Past Medical/Surgical History Has patient received pneumonia vaccine in the past: Yes Diabetic: No -: Hypertension -: Type 2 diabetes -: Morbid obesity -: Tonsillectomy - age 17 -: Tubal ligation - Family History Father Family History: Reviewed- Non-Contributory - Social History Smoking Status: Heavy Tobacco smoker (>10 cigarettes/day) Alcohol use: Yes CD- Drugs: No Caffeine use: No Place of Residence: Home Review of Systems 10-point ROS is otherwise unremarkable Physical Examination - Vital Signs Temperature: 97.8 F Blood Pressure: 137/62 Pulse: 50 Respirations: 20 Pulse Ox (%): 98 - Physical Exam General: Alert, In no apparent distress, Oriented x3 HEENT: Atraumatic, PERRLA, Mucous membr. moist/pink, EOMI, Sclerae nonicteric Neck: Supple, 2+ carotid pulse no bruit, No LAD, Without JVD or thyroid abnormality Respiratory: Clear to auscultation bilaterally, Normal air movement Cardiovascular: Regular rate/rhythm, Normal S1 S2, Systolic murmur Gastrointestinal: Normal bowel sounds, Soft and benign, Non-distended, No tenderness Musculoskeletal: No clubbing, No swelling, No tenderness Integumentary: No rashes Neurological: Normal gait, Normal speech, Normal strength at 5/5 x4 extr, Normal tone, Sensation intact, Cranial nerves 3-12 intact, Normal affect Lymphatics: No axilla or inguinal lymphadenopathy - Studies Laboratory Data (last 24 hrs) 05/04/18 14:35: PT 11.7, INR 0.99 05/04/18 14:35: WBC 5.9, Hgb 13.3, Hct 40.0, Plt Count 248 05/04/18 14:35: Sodium 141, Potassium 4.6, BUN 15, Creatinine 0.90, Glucose 88, Magnesium 2.3, Total Bilirubin 0.4, AST 28, ALT 28, Alkaline Phosphatase 76, Lipase 112 Assessment & Plan - Problems (Diagnosis) (1) Chest pain, rule out acute myocardial infarction Current Visit: Yes Status: Acute (2) Dyspepsia Current Visit: Yes Status: Acute (3) Tobacco abuse Current Visit: Yes Status: Acute (4) DM2 (diabetes mellitus, type 2) Current Visit: Yes Status: Acute (5) HTN (hypertension) Current Visit: Yes Status: Acute - Plan 1. Serial troponins and EKG 2. Cardiology consultation 3. Echocardiogram and stress test 4. Anti-platelet therapy, anti coagulation, beta-veronica, statin, and O2 as needed 5. IV morphine for pain 6. Nitro p.r.n. 7. Abdominal ultrasound 8. PPI 9. GI and DVT prophylaxis Discharge Plan: Home Plan to discharge in: 24 Hours - Advance Directives Does patient have a Living Will: No Does patient have a Durable POA for Healthcare: No - Code Status/Comfort Care Code Status Assessed: Yes Code Status: Full Code Critical Care: No Time Spent Managing PTS Care (In Minutes): 50
--- NOTE | 2018-05-05 10:22 | RAD REPORT ---
EXAM DESCRIPTION: NM - Rest Stress Cardiac Imaging - 05/05/2018 10:09 am CLINICAL HISTORY: Chest pain. COMPARISON: None. TECHNIQUE: The patient was administered approximately 10mCi of Tc 99m Sestamibi prior to resting SPE CT imaging of the heart. The patient was then administered approximately 30 mCi of Tc 99m Sestamibi f ollowing exercise or pharmacologic stress. Multiplanar SPECT images were reviewed. FINDINGS: Small area of diminished radiotracer activity involves the apical left ventricular myocard ium on rest and stress images. Small area diminished radiotracer uptake involves the anterior left ventricular myocardium on rest an d stress images. Left ventricular ejection fraction equals 54% IMPRESSION: Small apparent fixed perfusion defect involving the anterior left ventricular myocardiu m probably secondary to attenuation from overlying soft tissue. Small infarct can also have this appe arance. Small apparent fixed perfusion defect involving the apical left ventricular myocardium probably repre senting normal physiologic thinning. No evidence of stress-induced ischemia
--- NOTE | 2018-05-05 11:28 | ECHO ---
HEIGHT: 5 ft 3 in WEIGHT: 199 lb 12.8 oz DATE OF STUDY: 05/05/[address]: Rachel Dela Cruz MD 2-DIMENSIONAL: YES M.MODE: YES DOPPLER: YES COLOR FLOW: YES TDS: NO PORTABLE: NO DEFINITY: NO BUBBLE STUDY: NO DIAGNOSIS: CHEST PAIN CARDIAC HISTORY: CATHERIZATION: NO SURGERY: NO PROSTHETIC VALVE: NO PACEMAKER: NO MEASUREMENTS (cm) DIASTOLIC (NORMALS) SYSTOLIC (NORMALS) IVSd 0.9 (0.6-1.2) LA Diam 3.4 (1.9-4.0) LVEF 78% LVIDd 4.9 (3.5-5.7) LVIDs 2.6 (2.0-3.5) %FS 46% LVPWd 1.0 (0.6-1.2) Ao Diam 2.8 (2.0-3.7) 2 DIMENSIONAL ASSESSMENT: RIGHT ATRIUM: NORMAL LEFT ATRIUM: NORMAL RIGHT VENTRICLE: NORMAL LEFT VENTRICLE: NORMAL TRICUSPID VALVE: NORMAL MITRAL VALVE: NORMAL PULMONIC VALVE: NORMAL AORTIC VALVE: NORMAL PERICARDIAL EFFUSION: NONE AORTIC ROOT: NORMAL LEFT VENTRICULAR WALL MOTION: NORMAL DOPPLER/COLOR FLOW: MILD TRICUSPID REGURGITATION. COMMENTS: MILD TRICUSPID REGURGITATION. NORMAL RIGHT VENTRICULAR SYSTOLIC PRESSURE. NORMAL LEFT VENTRICULAR SIZE AND FUNCTION. NO WALL MOTION ABNORMALITY. TECHNOLOGIST: Randy AMBROSE
--- NOTE | 2018-05-05 11:31 | TREADPHA ---
DX: CHEST PAIN Date of Study: 05/05/2018 Ht: 5 3 Wt: 199 lb 12.8 oz Consulting Physician: PAMELA MEDICATIONS: TYLENOL, XANAX, LIPITOR, ASPIRIN, ZOFRAN, TOPROL XL HISTORY: 62 YEAR OLD FEMALE HERE FOR CHEST PAIN. HISTORY OF BLADDER SPASMS. PHYSICIAL EXAMINATION: RESTING B.P.: 111/85 RESTING H.R.: 51 RESTING EKG: NORMAL PROTOCOL: LEXISCAN EXERCISE TIME: 3:30 B.P. AT PEAK STRESS: 139/76 IMPRESSION: LEXISCAN STRESS TEST PERFORMED. CARDIOLITE INJECTED PER PROTOCOL. NO ARRHYTHMIAS NOTED. DENIES AN CHEST PAIN. SEE NUCLEAR MEDICINE REPORT.
[2018-05-05 12:35] VITALS: O2SAT 98
--- NOTE | 2018-05-05 14:39 | CON ---
Date of Consultation: 05/05/[address] Venegas's service on 05/04/2018. Reason For Consultation: Chest pain. History Of Present Illness: Ms. Prasad is a 62-year-old black woman, who really has no significant p ast medical history, who came in with substernal chest pain that lasted about 15 minutes, sharp, stab rut, radiated to the back. No nausea, vomiting, diaphoresis, PND, orthopnea, pedal edema, palpitati ons, or syncope. She did have a headache and she thought that she was hypertensive. Past Medical History: Negative. Allergies: NONE. Review of Systems: Negative. Social History: Positive for tobacco use. Medications At Home: None. Physical Examination: Vital Signs: Stable. Afebrile. HEENT: Negative. Neck: Supple with no bruit. Chest: Clear. Cardiac: Revealed a regular rhythm and rate without any murmurs, gallops, or rubs. Abdomen: Benign. Extremities: Revealed no clubbing, cyanosis, or edema. Diagnostic Data: She had a negative CT of her head, negative EKG, negative chest x-ray, negative lab s. Impression And Plan: The patient with some risk factors for heart disease including her age, her tob acco use, morbid obesity, negative cardiac workup. Symptoms are probably related to hypertension and gastroesophageal reflux disease, which I suggest should be treated with a calcium veronica and Proton ix, but nevertheless we need to rule out CAD. Recommended an echo and a stress test today. EDITH Voice ID: [id number] Report ID: [id number]
[2018-05-05 14:41] VITALS: BP 126/63; TEMP 97.7
[2018-05-05] MEDS ORDERED: INFLUENZA VACCINE (for 3y+) 0.5 ML DOSE IMVAC ONE (15:00)
--- NOTE | 2018-05-06 03:43 | DS ---
Date of Discharge: 05/05/2018 Consultants: Dr. Ellis with Cardiology. Procedures: Cardiac stress test on 05/05/2018. No stress-induced ischemia. Does have small apparen t fixed perfusion defect involving the anterior left ventricular myocardium, probably secondary to at tenuation from overlying soft tissue. Small apparent fixed perfusion defect involving the apical lef t ventricular myocardium probably representing normal physiologic thinning. No evidence of stress-in duced ischemia. Discharge Diagnoses: 1.Chest pain, acute coronary syndrome ruled out. 2.Dyspepsia, likely from gastroesophageal reflux disease. 3.Nicotine dependence and cigarette smoking, counseled. 4.Diabetes mellitus type 2, non-insulin requiring with no complications, diet controlled. 5.Essential hypertension, stable, diet controlled. 6.Obesity. BMI 35. Hospital Course: The patient is a 62-year-old female with past medical history of diabetes, hyperten ian, obesity, comes in with left-sided chest pain as well as some discomfort in middle of her chest. The patient was evaluated for acute coronary syndrome. Her cardiac enzymes remain negative. She w as started on chest pain guidelines. The patient's workup revealed no acute abnormalities regarding her cardiac enzymes. She was seen by Cardiology. EKG did not show any acute changes. Her echocardi ogram showed a normal ejection fraction. EF of 78%. No wall motion abnormality was seen. Stress te st was done with findings as above with no stress-induced ischemia present. The patient's symptoms r esolved. She does report having heartburn symptoms and will be started on trial of PPI. The patient has reported some insomnia and has been receiving benzodiazepines at home. Has been trying a low do se of [id number] melatonin. The patient will be discharged on Remeron p.o. The patient did walker ve abdominal ultrasound done, which showed no gallstones, no duct dilatation, it was unremarkable. H ead CT scan was also negative. The patient's chest x-ray did not show any acute abnormalities either . The patient was doing significantly better. Her chest pain had resolved. The patient was then cl eared for discharge from Cardiology standpoint. The patient will need to follow up with primary care physician in 2 to 3 days. Follow up with [facility] upper, Dr. Ellis in 2 weeks. Return to ER for wo rsening condition. Follow up with GI in 2 to 4 weeks. Diet: Diabetic diet. Activity: As tolerated. Medications: As per medication reconciliation list. Physical Examination: General: Awake, alert, oriented, no acute distress. CV: S1, S2. No murmurs. Respiratory: Moving air well bilaterally. Abdomen: Soft, nontender, nondistended. Positive bowel sounds. Extremities: No clubbing, cyanosis, or edema. Neuro: Nonfocal. SA/MODL Voice ID: [id number] Report ID: [id number]
== END 2018-05-05 14:22 | disposition home or self-care (01) ==
LOC: ER 12:39 → ERHOLD 15:53 → 4TH 19:58
PROVIDERS: ADMIT Family Medicine; ATTEND Hospitalist
DX: R07.9 Chest pain, unspecified (principal); R10.13 Epigastric pain; F17.210 Nicotine dependence, cigarettes, uncomplicated; E11.9 Type 2 diabetes mellitus without complications; I10 Essential (primary) hypertension; E66.9 Obesity, unspecified; Z68.35 Body mass index [BMI] 35.0-35.9, adult
CPT/HCPCS: 36415; 70450; 71045; 76705; 78452; 80048; 80053; 80076; 81003; 83690; 83735; 83880; 84484; 85025; 85610; 93005; 93017; 93306; 96361; 96372; 96374; 96375; 99285; A9500; G0378; J1650; J2405; J2785; J7030